=== PATIENT | male | born 1950 | race Caucasian/White ===

== ENCOUNTER → 2018-09-11 | Outpatient (CLI) | payer MEDICARE, OTHER ==
--- NOTE | 2018-09-11 16:10 | PCVCIMAG ---
APPROVED REPORT Study performed: 09/11/2018 15:05:07 Exam: Stress Echocardiogram Indication: Palpitations , Dyspnea, symptomatic PACs and PVCs Patient Location: Echo lab Stress Nurse: Harriet Collins RN Status: routine Ht: 5 ft 9 in HR: 60 bpm BP: 112/76 mmHg Rhythm: NSR Procedure The patient underwent an Exercise Stress Test using the Antonio Protocol. Blood pressure, heart rate, and EKG were monitored. An Echocardiogram was performed by architecture technician in four stages in quad fashion. At peak stress, four selected images were obtained and placed side by side with resting images for comparison. Stress Test Details Stress Test: Exercise stress testing was performed using a Antonio protocol. HR Resting HR: 60 bpmMax Heart Rate (APMHR): 153 bpm Max HR Achieved: 141 bpmTarget HR (85% APMHR): 130 bpm % of APMHR: 92 Recovery HR: 75 bpm HR response to stress: Normal HR response to stress BP Resting BP: 112/76 mmHg Max BP: 140/84 mmHg Recovery BP: 118/78 mmHg BP response to stress: Normal blood pressure response to stress. ECG Resting ECG: Sinus Rhythm Stress ECG: Sinus Rhythm ST Change: Non-ischemic Arrhythmia: None Recovery ECG: Sinus Rhythm Recovery ST Change: Normal Recovery Arrhythmia: None Clinical Reason for Termination: Maximal effort Stress Symptoms: Dyspnea Exercise duration: 13 min sec Highest Stage Achieved: Stage 5: 5.0 mph at 18% grade. Exercise capacity: 17.2 METs Overall Exercise Capacity for Age: Excellent Scale: Active Angina Score: None Pre-Stress Echo The resting Echocardiogram showed normal left ventricular contractility with an estimated Ejection Fraction of about >55%. Normal wall motion in all segments on baseline images. Post-Stress Echo The stress Echocardiogram showed normal left ventricular contractility with an estimated Ejection Fraction of about 65%. Normal augmentation of wall motion in all segments on post stress images. Clinical No clinical or ECG evidence for ischemia. Conclusion Clinical Response: Non-ischemic Exercise Capacity: Superior Stress ECG Response: Non-ischemic Stress Echo Images: Non-ischemic The left ventricle is normal in size and wall thickness in both the rest and stress images. Mild aortic insufficiency. Other Information Study Quality: Adequate <Conclusion> The left ventricle is normal in size and wall thickness in both the rest and stress images. Mild aortic insufficiency.
== END | disposition home or self-care (01) ==
LOC: PCVCIMAG 14:53
PROVIDERS: ATTEND Internal Medicine Cardiovascular Disease
DX: I49.3 Ventricular premature depolarization (principal); R00.2 Palpitations; R06.00 Dyspnea, unspecified
CPT/HCPCS: 93325; 93351